=== PATIENT | male | born 2000 | race Caucasian/White ===

== ENCOUNTER 2023-12-02 03:34 | Emergency (ER) | payer SELFPAY ==
[~2023-12-02] VITALS: Ht 170.2 cm; Wt 92.1 kg
[2023-12-02 03:35] VITALS: TEMP 96.2
[2023-12-02] MEDS ORDERED: NS 1,000 ML IV ONE (03:45)
[2023-12-02] MEDS ORDERED: Ondansetron 4 MG/2 ML VIAL IV ONE (03:45)
[2023-12-02 04:15] LABS: BASO % 0.2 % (0.0-2.0); EOS % 0.4 % (0.0-4.0); GRAN # 7.8 K/mm3 (1.4-6.5); GRAN % 74.5 % (42.2-75.2); HEMATOCRIT 48.5 % (42.0-52.0); HEMOGLOBIN 17.6 g/dl (13.5-18.0); LYMPH # 1.9 K/mm3 (1.2-3.4); LYMPH % 18.5 % (20.0-51.0); MEAN CELL VOLUME 83 fl (80.0-100.0); MEAN CORPUSCULAR HEMOGLOBIN 30 pg (27-31); MEAN CORPUSCULAR HGB CONC 36 g/dl (33.0-37.0); MEAN PLATELET VOLUME 9.2 fl (7.4-10.4); MONO # 0.6 K/mm3 (0.1-0.6); PLATELET COUNT 232 K/mm3 (130-400); RED BLOOD COUNT 5.85 M/mm3 (4.20-5.60); REDCELL DISTRIBUTION WIDTH-CV 11.9 % (11.5-14.5)
[2023-12-02 04:33] LABS: ALBUMIN 4.4 g/dL (3.5-5.0); BILIRUBIN,TOTAL 0.9 mg/dL (0.2-1.2); CALCIUM 9.6 mg/dL (8.4-10.2); CREATININE, serum 1.32 mg/dL (0.72-1.25); POTASSIUM 3.5 mEq/L (3.5-4.5); TOTAL PROTEIN 7.9 g/dl (6.2-8.1)
[2023-12-02] MEDS ORDERED: LR 1,000 ML IV ONE (05:00)
[2023-12-02 05:45] VITALS: BP 121/71; PULSE 95
== END 2023-12-02 08:45 | disposition home or self-care (01) ==
LOC: COL.ER 03:34 → EDBD 03:34 → COL.ER 08:45
PROVIDERS: Emergency Medicine
DX: F10.129 Alcohol abuse with intoxication, unspecified (principal); Y90.7 Blood alcohol level of 200-239 mg/100 ml
CPT/HCPCS: J2405; J7030